=== PATIENT | male | born 1970 | race African-American/Black ===

== ENCOUNTER 2017-02-28 13:53 | Inpatient (IN) | payer MEDICAID ==
[2017-02-28] MEDS ORDERED: HYDROmorphone 1 mg/mL 1mL Syr IVP STA ×2 (14:27→15:43)
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
[2017-02-28 14:38] LABS: % EOSINOPHILS 3.1 % (0.0-5.0); % LYMPHOCYTES 25.4 % (20.0-50.0); % NEUTROPHILS 64.5 % (40.0-80.0); HEMATOCRIT 31.7 % (39.0-49.0); HEMOGLOBIN 10.5 gm/dL (13.2-17.3); MEAN CELL VOLUME 88.6 fl (80-99); MEAN CORPUSCULAR HEMOGLOBIN 29.3 pg (26.0-30.0); MEAN CORPUSCULAR HGB CONC 33.1 pg (28.0-36.0); MEAN PLATELET VOLUME 7.2 fl; NEUTROPHILE ABSOLUTE 3.4 Th/cmm (1.8-8.0); PLATELET COUNT 338 Th/cmm (150-400); RED BLOOD COUNT 3.58 Mil/cmm (4.30-5.70); RED CELL DISTRIBUTION WIDTH 12.6 % (11.5-20.0); WHITE BLOOD COUNT 5.4 Th/cmm (4.8-10.8)
[2017-02-28] MEDS ORDERED: HYDROmorphone 1 mg/mL 1mL Syr ONE ×2 (14:40→15:30)
[2017-02-28 14:58] LABS: ANION GAP 8.3 (7.0-16.0); BUN - UREA NITROGEN 14 mg/dL (7-25); CALCIUM SERUM 9.4 mg/dL (8.6-10.3); CARBON DIOXIDE 28.5 mEq/L (21.0-31.0); CHLORIDE 101 mEq/L (98-107); GLUCOSE 124 mg/dL (70-105); POTASSIUM SERUM 3.8 mEq/L (3.5-5.1); SODIUM SERUM 134 mEq/L (136-145)
[2017-02-28 15:00] LABS: INR 0.98 (0.5-1.4); PROTHROMBIN TIME (TEST) 10.2 SECONDS (9.5-11.5)
--- NOTE | 2017-02-28 15:55 | Diagnostic Imaging Report ---
Bilateral lower extremity DVT study HISTORY: Leg edema COMPARISON: None Technique: Longitudinal and transverse sonographic images of the bilateral lower extremity veins were obtained with doppler analysis. FINDINGS: There is normal compressibility, augmentation and phasicity of the bilateral common femoral, superficial femoral, popliteal, veins. The right posterior tibial and peroneal veins are not well-visualized due to overlying ulcers. The left posterior tibial and peroneal veins are patent. IMPRESSION: The right posterior tibial and peroneal veins were not visualized due to overlying ulcers. Otherwise no evidence of DVT within the bilateral lower extremity venous system. Consider short-term follow up exams if warranted.
[2017-02-28] MEDS ORDERED: HYDROmorphone 2 mg/mL 1mL Vial IVP PRN ×2 (20:04→21:25)
[2017-02-28] MEDS ORDERED: HYDROmorphone 1 mg/mL 1mL Syr IVP PRN (20:05)
[2017-02-28] MEDS ORDERED: Fleet Enema 135 mL RC PRN (20:18)
[2017-02-28] MEDS ORDERED: Magnesium Hydroxide (MOM) 30 mL UDC PO PRN (20:18)
[2017-02-28] MEDS ORDERED: HYDROmorphone 2 mg/mL 1mL Vial IVP ONE (20:45)
--- NOTE | 2017-02-28 20:52 | Admit Criteria Form ---
Admit Criteria Forms - Admit Criteria Diagnosis: ANEMIA, IRON DEFICIENCY OR UNSPECIFIED Clinical Indications for Inpatient Care (Place 'X' for any and all applicable criteria): Admission is indicated for ANY ONE of the following(1)(2)(3)(4)(5)(6)(7): [X] I. Inpatient admission required rather than observation care (Also use Anemia, Iron Deficiency or Unspecified: Observation Care guideline as appropriate) because of ANY ONE of the following: [] a) Hemodynamic instability that is severe or persistent [] b) Active bleeding that cannot be rapidly controlled [] c) CVS symptoms (i.e., dyspnea, chest pain, heart failure) that are severe or persistent [] d) Neurologic symptoms (i.e., cognitive impairment, recurrent syncope or near syncope) that are severe or persistent [] e) Cardiac arrhythmias of immediate concern [] f) Acute peripheral ischemia (e.g., pulseless, cool, mottled, or cyanotic extremity) [] g) High-risk low platelet count [] h) Acute renal failure [] i) Ongoing transfusion for blood loss (greater than 2 units) [] j) IV fluid to replace significant ongoing (eg, >24 hours) losses (> 3 L/m2 per day) [] k) Pulmonary artery catheter monitoring [] l) Supplemental oxygen or respiratory treatments for over 24 hours that are performable only in acute inpatient setting [] m) Immediate inpatient surgery [X] n) Other condition, treatment or monitoring requiring inpatient admission [] II Active massive hemorrhage [] III. Active hemolysis with rapidly progressive anemia [A](6) Extended stay beyond goal length of stay may be needed for (17)(18) []a) Diagnosed cause of anemia requiring longer hospitalization (eg, active GI bleeding, immune hemolysis requiring electrophoresis, complications of malignancy requiring acute care []b) Continued emergent anemia indicators (23) []c) Transfusion reactions []d) Associated leukopenia or thrombocytopenia needing inpatient care []e) Active comorbidities (eg, renal failure, heart failure) The original [employer] content created by [employer] has been revised. The portions of the content which have been revised are identified through the use of italic text or in bold. [employer] has neither reviewed nor approved the modified material. All other unmodified content is copyright [employer]. Please see references footnoted in the original [facility] edition 2016 Admit Criteria Met?: Yes
[2017-02-28] MEDS ORDERED: Piperacillin Sodium/Tazobact 3.375 gm Vial IV ONE (21:54)
[2017-03-01] MEDS: HYDROmorphone 2 mg/mL 1mL Vial IVP PRN ×6 (02:16→23:22)
[2017-03-01 02:45] VITALS: BP 136/71
[2017-03-01] MEDS ORDERED: Piperacillin Sodium/Tazobact 3.375 gm Vial IV ONE (05:46)
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
[2017-03-01] MEDS: Multivitamin w/ Minerals Tab PO SCH (08:51)
[2017-03-01] MEDS: POLYETHYLENE GLYCOL 3350 17 GM PACK PO SCH (08:52)
[2017-03-01 10:30] LABS: % LYMPHOCYTES 34.3 % (20.0-50.0); % MONOCYTES 10.5 % (2.0-10.0); % NEUTROPHILS 52.2 % (40.0-80.0); HEMATOCRIT 31.3 % (39.0-49.0); HEMOGLOBIN 10.3 gm/dL (13.2-17.3); MEAN CELL VOLUME 89.4 fl (80-99); MEAN CORPUSCULAR HEMOGLOBIN 29.4 pg (26.0-30.0); MEAN CORPUSCULAR HGB CONC 32.9 pg (28.0-36.0); PLATELET COUNT 335 Th/cmm (150-400); RED CELL DISTRIBUTION WIDTH 12.8 % (11.5-20.0)
[2017-03-01 10:47] LABS: WHITE BLOOD COUNT 3.8 Th/cmm (4.8-10.8)
[2017-03-01 10:50] LABS: ANION GAP 7.9 (7.0-16.0); BUN - UREA NITROGEN 13 mg/dL (7-25); BUN/CREATININE RATIO 11.8; CALCIUM SERUM 9.5 mg/dL (8.6-10.3); CARBON DIOXIDE 30.8 mEq/L (21.0-31.0); CHLORIDE 103 mEq/L (98-107); CREATININE - SERUM 1.1 mg/dL (0.7-1.3); GLUCOSE 102 mg/dL (70-105); POTASSIUM SERUM 3.7 mEq/L (3.5-5.1); SODIUM SERUM 138 mEq/L (136-145)
--- NOTE | 2017-03-01 20:34 | General Progress Note ---
Subjective - Review of Systems Service Date: 03/01/17 Objective - Results Result Diagrams: 03/01/17 10:17 03/01/17 10:17 Recent Labs: Laboratory Last Values WBC 3.8 Th/cmm (4.8-10.8) L D 03/01/17 10:17 RBC 3.50 Mil/cmm (4.30-5.70) L 03/01/17 10:17 Hgb 10.3 gm/dL (13.2-17.3) L 03/01/17 10:17 Hct 31.3 % (39.0-49.0) L 03/01/17 10:17 MCV 89.4 fl (80-99) 03/01/17 10:17 MCH 29.4 pg (26.0-30.0) 03/01/17 10: MCHC Differential 32.9 pg (28.0-36.0) 03/01/17 10:17 RDW 12.8 % (11.5-20.0) 03/01/17 10:17 Plt Count 335 Th/cmm (150-400) 03/01/17 10:17 MPV 7.0 fl 03/01/17 10:17 Neutrophils % 52.2 % (40.0-80.0) 03/01/17 10:17 Lymphocytes % 34.3 % (20.0-50.0) 03/01/17 10:17 Monocytes % 10.5 % (2.0-10.0) H 03/01/17 10:17 Eosinophils % 3.0 % (0.0-5.0) 03/01/17 10: Basophils % 0.0 % (0.0-2.0) 03/01/17 10:17 PT 10.2 SECONDS (9.5-11.5) 02/28/17 14:31 INR 0.98 (0.5-1.4) 02/28/17 14:31 PTT (Actin FS) 30.8 SECONDS (26.0-38.0) 02/28/17 14:31 Sodium 138 mEq/L (136-145) 03/01/17 10:17 Potassium 3.7 mEq/L (3.5-5.1) 03/01/17 10:17 Chloride 103 mEq/L (98-107) 03/01/17 10:17 Carbon Dioxide 30.8 mEq/L (21.0-31.0) 03/01/17 10:17 Anion Gap 7.9 (7.0-16.0) 03/01/17 10:17 BUN 13 mg/dL (7-25) 03/01/17 10:17 Creatinine 1.1 mg/dL (0.7-1.3) 03/01/17 10:17 Est GFR ( Amer) > 60.0 ml/min (>90) 03/01/17 10:17 Est GFR (Non-Af Amer) > 60.0 ml/min 03/01/17 10:17 BUN/Creatinine Ratio 11.8 03/01/17 10:17 Glucose 102 mg/dL (70-105) 03/01/17 10:17 Calcium 9.5 mg/dL (8.6-10.3) 03/01/17 10: TSH 13.85 uIU/ml (0.34-5.60) H 03/01/17 10:17 - Physical Exam Vitals and I&O: Vital Signs Temp 98.0 F 03/01/17 16:00 Pulse 59 03/01/17 16:00 Resp 18 03/01/17 16:00 BP 129/67 03/01/17 16:00 Pulse Ox 98 03/01/17 16:00 Intake & Output 03/01/17 03/01/17 03/02/17 06:59 18:59 06:59 Intake Total 580 240 Output Total 500 Balance 80 240 Intake: Intake, IV Amount 100 Piperacillin Sodium/ 100 Tazobact 3.375 gm In Sodium Chloride 0.9% 50 ml @ 100 mls/hr IV Q8HR [facility] Rx#:[id number] Oral 480 240 Output: Urine 500 Other: # Voids 1 # Bowel Movements 1 Active Medications: Current Medications Acetaminophen (Tylenol) 650 mg PO Q4HR PRN PRN Reason: mild pain Stop: 04/29/17 20:17 Ascorbic Acid (Vitamin C) 500 mg PO DAILY [facility] Stop: 04/30/17 08:59 Last Admin: 03/01/17 08:51 Dose: 500 mg Baclofen (Lioresal) 10 mg PO QID [facility] Stop: 04/29/17 20:59 Last Admin: 04/21/17 16:43 Dose: 10 mg Bethanechol Chloride (Urecholine) 10 mg PO QID [facility] Stop: 04/29/17 20:59 Last Admin: 03/01/17 17:34 Dose: 10 mg Bisacodyl (Dulcolax 10 Mg Supp) 10 mg RC DAILY PRN PRN Reason: if MOM ineffective Stop: 04/29/17 20:17 Docusate Sodium (Colace) 100 mg PO DAILY [facility] Stop: 04/30/17 08:59 Last Admin: 03/01/17 08:51 Dose: 100 mg Gabapentin (Neurontin) 300 mg PO QID [facility] Stop: 04/29/17 20:59 Last Admin: 03/01/17 16:43 Dose: 300 mg Heparin Sodium (Porcine) (Heparin) 5,000 units SUBQ Q12HR [facility] Stop: 04/30/17 20:59 Hydromorphone HCl (Dilaudid) 4 mg IVP Q4HR PRN PRN Reason: Severe Pain Stop: 04/29/17 21:22 Last Admin: 03/01/17 19:18 Dose: 4 mg Hydromorphone HCl (Dilaudid) 2 mg IVP Q4HR PRN PRN Reason: MODERATE PAIN Stop: 04/29/17 21:24 Piperacillin Sod/Tazobactam (Sod 3.375 gm/ Sodium Chloride) 50 mls @ 100 mls/ hr IV Q8HR [facility] Stop: 04/29/17 20:59 Last Admin: 03/01/17 12:32 Dose: 100 mls/hr Magnesium Hydroxide (Milk Of Magnesia) 30 ml PO HS PRN PRN Reason: Constipation Stop: 04/29/17 20:17 Polyethylene Glycol (Miralax) 17 gm PO DAILY [facility] Stop: 04/30/17 08:59 Last Admin: 03/01/17 08:52 Dose: 17 gm Pregabalin (Lyrica) 100 mg PO TID [facility] Stop: 04/29/17 20:59 Last Admin: 03/01/17 13:55 Dose: 100 mg Sodium Phosphate (Fleet Enema) 135 ml RC Q2D PRN PRN Reason: dulcolax ineffective Stop: 04/29/17 20:17 Tramadol HCl (Ultram) 50 mg PO QID [facility] Stop: 04/29/17 20:59 Last Admin: 03/01/17 16:43 Dose: 50 mg Zinc Sulfate (Zinc Sulfate) 220 mg PO DAILY [facility] Stop: 04/30/17 08:59 Last Admin: 03/01/17 08:51 Dose: 220 mg Assessment/Plan - Problem List Patient Problems: All Active Problems INFECTED WOUND (Acute) Infected wound (Acute ~02/28/17) T14.8, L08.9
[2017-03-02] MEDS: HYDROmorphone 2 mg/mL 1mL Vial IVP PRN ×5 (04:14→21:37)
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
[2017-03-02] MEDS: Multivitamin w/ Minerals Tab PO SCH (08:24)
[2017-03-02] MEDS: POLYETHYLENE GLYCOL 3350 17 GM PACK PO SCH (08:24)
--- NOTE | 2017-03-02 10:07 | General Progress Note ---
Subjective - Review of Systems Service Date: 03/02/17 Events since last encounter: refused bone scan yesterday for MRI Saturday Objective - Results Result Diagrams: 03/01/17 10:17 03/01/17 10: Recent Labs: Laboratory Last Values WBC 3.8 Th/cmm (4.8-10.8) L D 03/01/17 10:17 RBC 3.50 Mil/cmm (4.30-5.70) L 03/01/17 10:17 Hgb 10.3 gm/dL (13.2-17.3) L 03/01/17 10:17 Hct 31.3 % (39.0-49.0) L 03/01/17 10: MCV 89.4 fl (80-99) 03/01/17 10:17 MCH 29.4 pg (26.0-30.0) 03/01/17 10: MCHC Differential 32.9 pg (28.0-36.0) 03/01/17 10:17 RDW 12.8 % (11.5-20.0) 03/01/17 10:17 Plt Count 335 Th/cmm (150-400) 03/01/17 10:17 MPV 7.0 fl 03/01/17 10:17 Neutrophils % 52.2 % (40.0-80.0) 03/01/17 10:17 Lymphocytes % 34.3 % (20.0-50.0) 03/01/17 10:17 Monocytes % 10.5 % (2.0-10.0) H 03/01/17 10:17 Eosinophils % 3.0 % (0.0-5.0) 03/01/17 10:17 Basophils % 0.0 % (0.0-2.0) 03/01/17 10:17 PT 10.2 SECONDS (9.5-11.5) 02/28/17 14:31 INR 0.98 (0.5-1.4) 02/28/17 14:31 PTT (Actin FS) 30.8 SECONDS (26.0-38.0) 02/28/17 14:31 Sodium 138 mEq/L (136-145) 03/01/17 10:17 Potassium 3.7 mEq/L (3.5-5.1) 03/01/17 10:17 Chloride 103 mEq/L (98-107) 03/01/17 10:17 Carbon Dioxide 30.8 mEq/L (21.0-31.0) 03/01/17 10:17 Anion Gap 7.9 (7.0-16.0) 03/01/17 10:17 BUN 13 mg/dL (7-25) 03/01/17 10:17 Creatinine 1.1 mg/dL (0.7-1.3) 03/01/17 10:17 Est GFR ( Amer) > 60.0 ml/min (>90) 03/01/17 10:17 Est GFR (Non-Af Amer) > 60.0 ml/min 03/01/17 10:17 BUN/Creatinine Ratio 11.8 03/01/17 10:17 Glucose 102 mg/dL (70-105) 03/01/17 10:17 Calcium 9.5 mg/dL (8.6-10.3) 03/01/17 10: TSH 13.85 uIU/ml (0.34-5.60) H 03/01/17 10:17 - Physical Exam Vitals and I&O: Vital Signs Temp 98 F 03/02/17 08:00 Pulse 61 03/02/17 08:00 Resp 20 03/02/17 08:00 BP 107/60 03/02/17 08:00 Pulse Ox 94 03/02/17 08:00 Intake & Output 03/01/17 03/02/17 03/02/17 18:59 06:59 18:59 Intake Total 650 510 120 Output Total 4 Balance 650 506 120 Intake: Intake, IV Amount 50 50 Piperacillin Sodium/ 50 50 Tazobact 3.375 gm In Sodium Chloride 0.9% 50 ml @ 100 mls/hr IV Q8HR [facility] Rx#:[id number] Oral 600 460 120 Output: Stool 4 Other: # Bowel Movements 1 Stool Characteristics Soft Soft Formed Formed Active Medications: Current Medications Acetaminophen (Tylenol) 650 mg PO Q4HR PRN PRN Reason: mild pain Stop: 04/29/17 20:17 Ascorbic Acid (Vitamin C) 500 mg PO DAILY [facility] Stop: 04/30/17 08:59 Last Admin: 03/02/17 08:23 Dose: 500 mg Baclofen (Lioresal) 10 mg PO QID [facility] Stop: 04/29/17 20:59 Last Admin: 03/02/17 08:23 Dose: 10 mg Bethanechol Chloride (Urecholine) 10 mg PO QID [facility] Stop: 04/29/17 20:59 Last Admin: 03/02/17 08:23 Dose: 10 mg Bisacodyl (Dulcolax 10 Mg Supp) 10 mg RC DAILY PRN PRN Reason: if MOM ineffective Stop: 04/29/17 20:17 Docusate Sodium (Colace) 100 mg PO DAILY [facility] Stop: 04/30/17 08:59 Last Admin: 03/02/17 08:24 Dose: 100 mg Gabapentin (Neurontin) 300 mg PO QID [facility] Stop: 04/29/17 20:59 Last Admin: 03/02/17 08:24 Dose: 300 mg Heparin Sodium (Porcine) (Heparin) 5,000 units SUBQ Q12HR [facility] Stop: 04/30/17 20:59 Last Admin: 03/02/17 08:24 Dose: 5,000 units Hydromorphone HCl (Dilaudid) 4 mg IVP Q4HR PRN PRN Reason: Severe Pain Stop: 04/29/17 21:22 Last Admin: 03/02/17 09:13 Dose: 4 mg Hydromorphone HCl (Dilaudid) 2 mg IVP Q4HR PRN PRN Reason: MODERATE PAIN Stop: 04/29/17 21:24 Piperacillin Sod/Tazobactam (Sod 3.375 gm/ Sodium Chloride) 50 mls @ 100 mls/ hr IV Q8HR [facility] Stop: 04/29/17 20:59 Last Admin: 03/02/17 04:15 Dose: 100 mls/hr Magnesium Hydroxide (Milk Of Magnesia) 30 ml PO HS PRN PRN Reason: Constipation Stop: 04/29/17 20:17 Polyethylene Glycol (Miralax) 17 gm PO DAILY [facility] Stop: 04/30/17 08:59 Last Admin: 03/02/17 08:24 Dose: 17 gm Pregabalin (Lyrica) 100 mg PO TID [facility] Stop: 04/29/17 20:59 Last Admin: 03/02/17 08:25 Dose: 100 mg Sodium Phosphate (Fleet Enema) 135 ml RC Q2D PRN PRN Reason: dulcolax ineffective Stop: 04/29/17 20:17 Tramadol HCl (Ultram) 50 mg PO QID [facility] Stop: 04/29/17 20:59 Last Admin: 03/02/17 08:24 Dose: 50 mg Zinc Sulfate (Zinc Sulfate) 220 mg PO DAILY [facility] Stop: 04/30/17 08:59 Last Admin: 03/02/17 08:24 Dose: 220 mg Assessment/Plan - Problem List Patient Problems: All Active Problems INFECTED WOUND (Acute) Infected wound (Acute ~02/28/17) T14.8, L08.9
--- NOTE | 2017-03-02 14:43 | Consultation ---
Consult Note - Consult Note Service Date: 03/02/17 Consult Note: [id number]
--- NOTE | 2017-03-02 22:35 | Progress Notes ---
DATE: 03/02/2017 SUBJECTIVE: The patient was seen in his room, having breakfast. Per the patient, he is doing okay. He is eating okay. He is having a good sleep. He denies any pain at this time. No acute distress. Per the patient, he is requesting for a distribution specialist explained to the patient that the surgeon already saw him and is already on the case. OBJECTIVE: HEENT: Head is atraumatic and normocephalic. Eyes: Bilateral conjunctivae are clear. Bilateral pupils are equally round and reactive. NECK: Supple. No JVD. CARDIOVASCULAR: S1 and S2 without murmur. PULMONARY: Clear to auscultation. GASTROINTESTINAL: Soft and nontender. MUSCULOSKELETAL: No clubbing, but edema on the right leg. ASSESSMENT: 1. Cellulitis of the right leg. 2. History of spinal cord injury. 3. Hypertension. 4. Chronic pain syndrome. PLAN: We will keep the patient as inpatient. We will continue IV antibiotics. We will follow up with the surgeon if the patient is possible for surgery or just for conservative management. JOB# [id number]
[2017-03-03] MEDS: HYDROmorphone 2 mg/mL 1mL Vial IVP PRN ×5 (02:10→22:59)
[2017-03-03] MEDS: POLYETHYLENE GLYCOL 3350 17 GM PACK PO SCH (09:19)
[2017-03-03] MEDS: Multivitamin w/ Minerals Tab PO SCH (09:21)
[2017-03-03] MEDS ORDERED: HYDROmorphone 2 mg/mL 1mL Vial IVP ONE (11:03)
--- NOTE | 2017-03-03 11:04 | General Progress Note ---
Subjective - Review of Systems Events since last encounter: no distress Objective - Results Result Diagrams: 03/01/17 10:17 03/01/17 10:17 Recent Labs: Laboratory Last Values WBC 3.8 Th/cmm (4.8-10.8) L D 03/01/17 10:17 RBC 3.50 Mil/cmm (4.30-5.70) L 03/01/17 10:17 Hgb 10.3 gm/dL (13.2-17.3) L 03/01/17 10:17 Hct 31.3 % (39.0-49.0) L 03/01/17 10:17 MCV 89.4 fl (80-99) 03/01/17 10:17 MCH 29.4 pg (26.0-30.0) 03/01/17 10:17 MCHC Differential 32.9 pg (28.0-36.0) 03/01/17 10:17 RDW 12.8 % (11.5-20.0) 03/01/17 10:17 Plt Count 335 Th/cmm (150-400) 03/01/17 10:17 MPV 7.0 fl 03/01/17 10:17 Neutrophils % 52.2 % (40.0-80.0) 03/01/17 10:17 Lymphocytes % 34.3 % (20.0-50.0) 03/01/17 10:17 Monocytes % 10.5 % (2.0-10.0) H 03/01/17 10:17 Eosinophils % 3.0 % (0.0-5.0) 03/01/17 10:17 Basophils % 0.0 % (0.0-2.0) 03/01/17 10:17 ESR 124 mm/hr (0-20) H 03/03/17 07:58 PT 10.2 SECONDS (9.5-11.5) 02/28/17 14:31 INR 0.98 (0.5-1.4) 02/28/17 14:31 PTT (Actin FS) 30.8 SECONDS (26.0-38.0) 02/28/17 14:31 Sodium 138 mEq/L (136-145) 03/01/17 10:17 Potassium 3.7 mEq/L (3.5-5.1) 03/01/17 10:17 Chloride 103 mEq/L (98-107) 03/01/17 10:17 Carbon Dioxide 30.8 mEq/L (21.0-31.0) 03/01/17 10:17 Anion Gap 7.9 (7.0-16.0) 03/01/17 10:17 BUN 13 mg/dL (7-25) 03/01/17 10:17 Creatinine 1.1 mg/dL (0.7-1.3) 03/01/17 10:17 Est GFR ( Amer) > 60.0 ml/min (>90) 03/01/17 10:17 Est GFR (Non-Af Amer) > 60.0 ml/min 03/01/17 10:17 BUN/Creatinine Ratio 11.8 03/01/17 10:17 Glucose 102 mg/dL (70-105) 03/01/17 10:17 Calcium 9.5 mg/dL (8.6-10.3) 03/01/17 10:17 TSH 13.85 uIU/ml (0.34-5.60) H 03/01/17 10:17 - Physical Exam Vitals and I&O: Vital Signs Temp 97.6 F 03/03/17 07:00 Pulse 51 03/03/17 07:00 Resp 18 03/03/17 08:34 BP 122/74 03/03/17 07:00 Pulse Ox 96 03/03/17 07:00 Intake & Output 03/02/17 03/03/17 03/03/17 18:59 06:59 18:59 Intake Total 530 170 Balance 530 170 Intake: Intake, IV Amount 50 50 Piperacillin Sodium/ 50 50 Tazobact 3.375 gm In Sodium Chloride 0.9% 50 ml @ 100 mls/hr IV Q8HR [facility] Rx#:[id number] Oral 480 120 Other: # Voids 3 Stool Characteristics Soft Soft Formed Formed Active Medications: Current Medications Acetaminophen (Tylenol) 650 mg PO Q4HR PRN PRN Reason: mild pain Stop: 04/29/17 20:17 Ascorbic Acid (Vitamin C) 500 mg PO DAILY [facility] Stop: 04/30/17 08:59 Last Admin: 03/03/17 09:20 Dose: 500 mg Baclofen (Lioresal) 10 mg PO QID [facility] Stop: 04/29/17 20:59 Last Admin: 03/03/17 09:21 Dose: 10 mg Bethanechol Chloride (Urecholine) 10 mg PO QID [facility] Stop: 04/29/17 20:59 Last Admin: 03/03/17 09:22 Dose: 10 mg Bisacodyl (Dulcolax 10 Mg Supp) 10 mg RC DAILY PRN PRN Reason: if MOM ineffective Stop: 04/29/17 20:17 Docusate Sodium (Colace) 100 mg PO DAILY [facility] Stop: 04/30/17 08:59 Last Admin: 03/03/17 09:21 Dose: 100 mg Gabapentin (Neurontin) 300 mg PO QID [facility] Stop: 04/29/17 20:59 Last Admin: 03/03/17 09:21 Dose: 300 mg Heparin Sodium (Porcine) (Heparin) 5,000 units SUBQ Q12HR [facility] Stop: 04/30/17 20:59 Last Admin: 03/03/17 09:20 Dose: 5,000 units Hydromorphone HCl (Dilaudid) 4 mg IVP Q4HR PRN PRN Reason: Severe Pain Stop: 04/29/17 21:22 Last Admin: 03/03/17 06:36 Dose: 4 mg Hydromorphone HCl (Dilaudid) 2 mg IVP Q4HR PRN PRN Reason: MODERATE PAIN Stop: 04/29/17 21:24 Last Admin: 03/03/17 10:35 Dose: 2 mg Hydromorphone HCl (Dilaudid) 2 mg IVP X1 ONE Stop: 03/03/17 11:04 Piperacillin Sod/Tazobactam (Sod 3.375 gm/ Sodium Chloride) 50 mls @ 100 mls/ hr IV Q8HR [facility] Stop: 04/29/17 20:59 Last Admin: 03/03/17 05:13 Dose: 100 mls/hr Magnesium Hydroxide (Milk Of Magnesia) 30 ml PO HS PRN PRN Reason: Constipation Stop: 04/29/17 20:17 Polyethylene Glycol (Miralax) 17 gm PO DAILY [facility] Stop: 04/30/17 08:59 Last Admin: 03/03/17 09:19 Dose: 17 gm Pregabalin (Lyrica) 100 mg PO TID [facility] Stop: 04/29/17 20:59 Last Admin: 03/03/17 09:20 Dose: 100 mg Sodium Phosphate (Fleet Enema) 135 ml RC Q2D PRN PRN Reason: dulcolax ineffective Stop: 04/29/17 20:17 Tramadol HCl (Ultram) 50 mg PO QID [facility] Stop: 04/29/17 20:59 Last Admin: 03/03/17 09:20 Dose: 50 mg Zinc Sulfate (Zinc Sulfate) 220 mg PO DAILY [facility] Stop: 04/30/17 08:59 Last Admin: 03/03/17 09:21 Dose: 220 mg Assessment/Plan - Problem List Patient Problems: All Active Problems INFECTED WOUND (Acute) Infected wound (Acute ~02/28/17) T14.8, L08.9
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
[2017-03-04] MEDS: HYDROmorphone 2 mg/mL 1mL Vial IVP PRN ×5 (02:57→20:26)
--- NOTE | 2017-03-04 08:39 | Diagnostic Imaging Report ---
Right lower extremity Doppler arterial ultrasound exam HISTORY: Pain, ischemic vascular disease Sonographic sector images were obtained through the arterial system the right leg. Associated Doppler data was obtained. The exam demonstrates triphasic waveforms within the common femoral and proximal and mid portions of the superficial femoral artery. Biphasic waveforms are noted within the distal portion of the superficial femoral artery, popliteal artery, and dorsalis pedis arteries. The anterior and posterior tibial arteries could not be evaluated due to overlying cutaneous ulcers. Retention of normal velocities within the visualized vessels. No definite significant narrowing or stenosis is seen. Pressure measurements could not be obtained due to cutaneous ulcerations. IMPRESSION: 1. Limited exam related due to cutaneous ulcers over the lower leg. 2. No definite evidence of significant narrowing or stenosis within the visualized arteries of the right leg as noted above.
[2017-03-04] MEDS: Multivitamin w/ Minerals Tab PO SCH (08:45)
[2017-03-04] MEDS: POLYETHYLENE GLYCOL 3350 17 GM PACK PO SCH (08:46)
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
[2017-03-04] MEDS: cefTRIAXone 2 GM in Sodium Chloride 0.9% 100 ML IV SCH (11:13)
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
[2017-03-05] MEDS: HYDROmorphone 2 mg/mL 1mL Vial IVP PRN ×4 (00:52→15:56)
[2017-03-05] MEDS: Multivitamin w/ Minerals Tab PO SCH (08:55)
[2017-03-05] MEDS: POLYETHYLENE GLYCOL 3350 17 GM PACK PO SCH (08:55)
[2017-03-05] MEDS: cefTRIAXone 2 GM in Sodium Chloride 0.9% 100 ML IV SCH (09:00)
[2017-03-05] MEDS ORDERED: Venelex 60gm Tube TP SCH (09:00)
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
--- NOTE | 2017-03-07 08:32 | Diagnostic Imaging Report ---
MRI right lower extremity without intravenous contrast HISTORY: Pain, osteomyelitis Multiple MRI sequences were obtained in the sagittal, axial, coronal planes. The exam demonstrates severe deformity of the lower mid tibial shaft associated with changes of an old fracture. Retention of normal MRI signal intensity through the bony structures. No definite evidence of osteomyelitis. A focus of signal void is seen within the proximal tibia consistent with metallic density presumably related to prior surgery. Deformity consistent with an old fracture of the mid distal shaft of the fibula also noted. Mild heterogeneity in the soft tissues along the lateral aspect of the lower leg. No discrete abnormal masses or abnormal fluid collections. IMPRESSION: 1. Deformity involving the mid/distal shafts of the tibia and fibula consistent with old fractures. No definite evidence of osteomyelitis. 2. Focus within the proximal tibia consistent with the presence of underlying metallic density presumably related to prior surgery. Correlation with plain radiographs recommended.
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
== END 2017-03-05 18:25 | DRG 813 ==
LOC: ER 13:53 → MSI 18:20
PROVIDERS: ADMIT Internal Medicine; ATTEND Internal Medicine
DX: T86.822 Skin graft (allograft) (autograft) infection (principal); L03.115 Cellulitis of right lower limb; M86.671 Other chronic osteomyelitis, right ankle and foot; I10 Essential (primary) hypertension; B99.9 Unspecified infectious disease; D63.8 Anemia in other chronic diseases classified elsewhere; M54.9 Dorsalgia, unspecified; G89.4 Chronic pain syndrome; I83.90 Asymptomatic varicose veins of unspecified lower extremity
CPT/HCPCS: 36415-UA; 73718-TC-RT; 80048-TC; 84443-TC; 85025-TC; 85610-TC; 85652-TC; 85730-TC; 86141-TC; 87070-90; 87075-90; 87086-90; 87205-90; 93926-RT-TC; 93970-TC-50; 96374; 96376; J0696; J1170; J1644; J2543; Z7610

== ENCOUNTER 2017-07-11 17:31 | Inpatient (IN) | payer MEDICAID ==
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
[2017-07-11 18:07] LABS: % BASOPHILS 0.4 % (0.0-2.0); % MONOCYTES 7.7 % (2.0-10.0); % NEUTROPHILS 58.9 % (40.0-80.0); MEAN CELL VOLUME 92.8 fl (80-99); MEAN CORPUSCULAR HEMOGLOBIN 30.3 pg (26.0-30.0); MEAN CORPUSCULAR HGB CONC 32.6 pg (28.0-36.0); MEAN PLATELET VOLUME 7.4 fl; NEUTROPHILE ABSOLUTE 3.1 Th/cmm (1.8-8.0); PLATELET COUNT 307 Th/cmm (150-400); RED BLOOD COUNT 4.11 Mil/cmm (4.30-5.70); RED CELL DISTRIBUTION WIDTH 12.3 % (11.5-20.0)
[2017-07-11 18:10] LABS: HEMATOCRIT 38.2 % (39.0-49.0); HEMOGLOBIN 12.4 gm/dL (13.2-17.3); WHITE BLOOD COUNT 5.3 Th/cmm (4.8-10.8)
[2017-07-11 18:20] LABS: BUN - UREA NITROGEN 15 mg/dL (7-25); BUN/CREATININE RATIO 13.6; CALCIUM SERUM 9.7 mg/dL (8.6-10.3); CARBON DIOXIDE 28.7 mEq/L (21.0-31.0); CHLORIDE 102 mEq/L (98-107); CREATININE - SERUM 1.1 mg/dL (0.7-1.3); GLUCOSE 86 mg/dL (70-105); POTASSIUM SERUM 3.7 mEq/L (3.5-5.1); SODIUM SERUM 134 mEq/L (136-145)
[2017-07-11 18:22] LABS: INR 0.99 (0.5-1.4); PROTHROMBIN TIME (TEST) 10.3 SECONDS (9.5-11.5)
[2017-07-11] MEDS ORDERED: Sodium Chloride 0.9% 1,000 ML IV ONE (18:39)
[2017-07-11] MEDS ORDERED: HYDROmorphone 2 mg/mL 1mL Vial IVP STA (18:40)
[2017-07-11] MEDS ORDERED: HYDROmorphone 2 mg/mL 1mL Vial ONE (18:43)
[2017-07-11] MEDS ORDERED: HYDROmorphone 1 mg/mL 1mL Syr IVP PRN (21:40)
[2017-07-11] MEDS ORDERED: HYDROmorphone 2 mg/mL 1mL Vial IVP PRN (21:41)
[2017-07-11] MEDS ORDERED: Piperacillin Sodium/Tazobact 3.375 gm Vial IV ONE ×2 (22:52)
[2017-07-11] MEDS ORDERED: Magnesium Hydroxide (MOM) 30 mL UDC PO PRN (22:59)
[2017-07-11] MEDS ORDERED: Acetaminophen 500 MG TAB PO PRN (22:59)
[2017-07-11] MEDS ORDERED: Fleet Enema 135 mL RC PRN (22:59)
[2017-07-12] MEDS ORDERED: Morphine Sulfate 4 mg/mL 1mL Syr IVP PRN (00:35)
[2017-07-12] MEDS: HYDROmorphone 2 mg/mL 1mL Vial IVP PRN ×2 (01:24→07:40)
--- NOTE | 2017-07-12 07:57 | Diagnostic Imaging Report ---
Bilateral lower extremity DVT study HISTORY: Left thigh pain COMPARISON: None Technique: Longitudinal and transverse sonographic images of the bilateral lower extremity veins were obtained with doppler analysis. FINDINGS: There is normal compressibility, augmentation and phasicity of the bilateral common femoral, superficial femoral, popliteal, and posterior tibial veins. No thrombus is visualized. IMPRESSION: No evidence of thrombus within the bilateral lower extremity veins.
[2017-07-12] MEDS ORDERED: POLYETHYLENE GLYCOL 3350 17 GM PACK PO SCH (09:00)
[2017-07-12] MEDS ORDERED: Multivitamin w/ Minerals Tab PO SCH (09:00)
[2017-07-12] MEDS ORDERED: HYDROmorphone 1 mg/mL 1mL Syr IVP PRN (13:36)
[2017-07-12] MEDS ORDERED: HYDROmorphone 2 mg/mL 1mL Vial IVP PRN (13:38)
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
--- NOTE | 2017-07-13 08:33 | Diagnostic Imaging Report ---
CT cervical spine without IV contrast HISTORY: Pain COMPARISON: None Technique: Axial images were obtained from the skull base to the upper thoracic spine without IV contrast. Multiplanar reconstructions were made. Total DLP: [id number], [id number] FINDINGS: Images of the spine cervical spine obtained without contrast demonstrate no evidence of a fracture or subluxation. Moderate generalized degenerative changes are seen with multilevel marginal osteophytic spurring greatest at C6/C7 measuring 3 mm. There is mild spinal canal and moderate bilateral neural foraminal narrowing at this level. There is also mild bilateral neural foraminal narrowing at C7/T1. No prevertebral soft tissue swelling. The lung apices are clear. Edema of the subcutaneous tissues is noted. IMPRESSION: No evidence of an acute fracture or subluxation. Multilevel moderate degenerative changes greatest at C6/C7 Edema of the subcutaneous tissues.
--- NOTE | 2017-07-13 08:36 | Diagnostic Imaging Report ---
CT lumbar spine without IV contrast HISTORY: Back pain COMPARISON: None Technique: Axial images were obtained from the lower thoracic spine to the upper sacrum without IV contrast. Reconstructions were made. total DLP: [id number], [id number] Findings: Images of the lumbar spine obtained without contrast demonstrate no evidence of acute fracture or subluxation. Multilevel mild to moderate degenerative changes are seen greatest at L4/L5 with 3 to 4 mm focal disc bulge at this level. There is mild spinal canal mild bilateral foraminal narrowing at this level. Additional smaller disc bulges are seen at L3/L4 and L5/S1 with mild spinal canal and mild neural bilateral neural foraminal narrowing also noted these levels. Degenerative changes of SI joints are noted. Minimal atherosclerosis of the aorta is noted. IMPRESSION: No evidence of acute fracture or subluxation Degenerative changes as detailed above greatest at L4/L5.
--- NOTE | 2017-07-16 01:45 | Admit Criteria Form ---
Admit Criteria Forms - Admit Criteria Diagnosis: GENERAL ADMISSION CRITERIA (Place 'X' for any and all applicable criteria): Admission is indicated for ANY ONE of the following: [ ]I. Hemodynamic instability as indicated by ANY ONE of the following(1)(2) (3)(4)(5): [ ]a) Vital sign abnormality not readily corrected by appropriate treatment within 12 to 24 hours indicated by ANY ONE of the following: [ ]i) Hypotension [ ]ii) Symptomatic Tachycardia unresponsive to treatment (eg , analgesia, fluids, sedation as indicated) [ ]iii) Orthostatic vital sign changes unresponsive to treatment (eg, fluids) [ ]b) Vital sign abnormality that is severe indicated by ANY ONE of the following: [ ]i) Inadequate perfusion indicated by ANY ONE of the following: [ ]1) Lactic acidosis (greater than 2 mmol/L) [ ]2) New abnormal capillary refill (greater than 3 seconds) [ ]3) Other metabolic acidosis (arterial pH less than 7.35) not otherwise explained [ ]4) Reduced urine output [ ]5) Altered mental status [ ]6) Myocardial Ischemia [ ]v) Mean arterial pressure[A] less than 60 mm Hg [ ]vi) Mean arterial pressure[A] less than 70 mm Hg after 30 minutes of appropriate treatment (eg, fluid resuscitation) [ ]vii) IV inotropic or vasopressor medication required to maintain adequate blood pressure or perfusion [ ]viii) Sustained heart rate greater than 120 beats per minute in adult or child 6 years or older[B]] [ ]II. Hypertension requiring inpatient treatment as indicated by ANY ONE of the following(6)(7)(8): [ ]a) SBP greater than 220 mm Hg or DBP greater than 120 mm Hg despite treatment [ ]b) SBP greater than 140 mm Hg or DBP greater than 100 mm Hg with evidence of acute end organ damage as indicated by ANY ONE of the following: [ ]i) Encephalopathy [ ]ii) Acute renal failure as indicated by new onset of ANY ONE of the following(9)(10)(11)(12)(13): [ ]1) A 3-fold rise in serum creatinine from baseline [ ]2) Serum creatinine greater than 4 mg/dL ( 354 micromoles/L) with acute rise greater than 0.5 mg/dL (44.2 micromoles/L) [ ]3) Reduction of more than 75% in estimated glomerular filtration rate from baseline [ ]4) Estimated glomerular filtration rate less than 35 mL/min/1.73m2 (0.59 mL/sec/1.73m2) in child up to 18 years of age [ ]5) Cessation of urine output indicated by ALL of the following: [ ]A. Adequate volume status [ ]B. Inadequate urine output as indicated by ANY ONE of the following: [ ]a. Urine output less than 0.3 mL/kg/hr for 24 hours [ ]b. Anuria (urine output less than 0.1 mL/kg/hr) for 12 hours [ ]iii) Aortic dissection [ ]iv) Myocardial ischemia [ ]v) Left ventricular heart failure [ ]vi) Retinal hemorrhage [ ]vii) Other significant finding [ ]c) Hypertension in child requiring inpatient treatment as indicated by ALL of the following(14)(15)(16): [ ]i) Outpatient treatment not effective, not available, or not appropriate [ ]ii) SBP or DBP greater than 95th percentile for age [ ]iii) Evidence of acute end organ damage as indicated by ANY ONE of the following: [ ]1) Altered mental status [ ]2) Acute renal failure as indicated by new onset of ANY ONE of the following(9)(10)(11)(12)(13): [ ]A. A 3-fold rise in serum creatinine from baseline [ ]B. Serum creatinine greater than 4 mg/dL (354 micromoles/L) with acute rise greater than 0.5 mg/dL (44.2 micromoles/L) [ ]C. Reduction of more than 75% in estimated glomerular filtration rate from baseline [ ]D. Estimated glomerular filtration rate less than 35 mL/min/1.73m2 (0.59 mL/sec/1.73m2)in child up to 18 years of age [ ]E. Cessation of urine output indicated by ALL of the following: [ ]a. Adequate volume status [ ]b. Inadequate urine output as indicated by ANY ONE of the following: [ ]1) Urine output less than 0.3 mL/kg/hr for 24 hours [ ]2) Anuria (urine output less than 0.1 mL/kg/hr) for 12 hours [ ]3) Severe headache [ ]4) Visual disturbance [ ]5) Retinal hemorrhage [ ]6) Other significant finding [ ]III. Acute cardiac or peripheral ischemia as indicated by ANY ONE of the following: [ ]a) Acute coronary syndrome(17)(18) [ ]b) Acute peripheral ischemia (eg, pulseless, cool, mottled, or cyanotic extremity)(19) [ ]IV. Cardiac arrhythmias or findings of immediate concern indicated by ANY ONE of the following(20)(21): [ ]a) Heart rhythms that are inherently dangerous or unstable indicated by ANY ONE of the following(22)(23)(24): [ ]i) Resuscitated ventricular fibrillation or cardiac arrest [ ]ii) Ventricular escape rhythm [ ]iii) Sustained ventricular tachycardia (30 seconds or more of ventricular rhythm at greater than 100 beats per minute) [ ]iv) Nonsustained ventricular tachycardia and ANY ONE of the following: [ ]1) Suspected cardiac ischemia as cause or consequence of ventricular tachycardia [ ]2) In setting of acute myocarditis [ ]b) Unstable cardiac conduction defects indicated by ANY ONE of the following(24)(25)(26): [ ]i) Type II second-degree atrioventricular block [ ]ii) Third-degree atrioventricular block [ ]iii) New-onset left bundle branch block with suspected myocardial ischemia [ ]c) Any heart rhythm and ANY ONE of the following(22)(23)(27)(28)( 29): [ ] i) Continuous long-term ECG monitoring needed (eg, initiation of drug requiring monitoring for more than 24 hours) [ ] ii) Patient has automatic implanted cardioverter defibrillator that is repeatedly firing, malfunctioning, or in need of immediate adjustment of settings beyond the scope of ambulatory or observation care. [ ]d) Heart rhythms of concern due to ANY ONE of the following: [ ]i) Hypotension [ ]ii) Respiratory distress [ ]iii) Association with other significant symptoms (eg, bradycardia with syncope or ongoing dizziness, supraventricular tachycardia with chest pain) (27)(28) (30) [ ] V. Severe heart failure as indicated by ANY ONE of the following ( 31)(32): [ ]a) Respiratory distress [ ]b) Hypotension [ ]c) Anasarca (refractory to outpatient therapy) [ ]d) Cardiac arrhythmias of immediate concern [ ]e) Myocardial ischemia [ ]. Respiratory abnormalities, including ANY ONE of the following(33)(34) (35)(36): [ ]a) Respiratory rate greater than 30 breaths per minute unresponsive to treatment [A] [ ]b) New saturation of arterial oxygen less than 90% [ ]c) New partial pressure of carbon dioxide greater than 44 mm Hg ( 5.9 kPa) [ ]d) Supplemental oxygen or respiratory treatments needed that are new or not performable at other levels of care [ ]e) New-onset cyanosis [ ]f) Inability to protect airway [ ]g) Chronic lung disease with severe deterioration (not responsive to emergency and observation care treatment as appropriate) as indicated by ANY ONE of the following(34)(36 ): [ ]i) SaO2 5% below baseline in patient with chronic hypoxemia [ ]ii) New requirement for supplemental oxygen to keep SaO2 at baseline or acceptable level [ ]iii) Required supplemental oxygen performable only in acute inpatient setting [ ]iv) Severe airflow or ventilation abnormalities [ ]v) Previously mobile patient unable to walk between rooms [ ]vi Inability to eat or sleep due to dyspnea [ ]vii) Rapid rate of exacerbation onset [ ]viii) Altered mental status ]VII. Severe airflow or ventilation abnormalities (not responsive to emergency and observation care treatment as appropriate) as indicated by ANY ONE of the following(33)(34)(35)(37): [ ]a) PCO2 greater than 42 mm Hg (5.6 kPa) and pH less than 7.35 (new ) [ ]b) Documented PCO2 increased more than 5 mm Hg (0.7 kPa) from disease baseline [ ]c) Airflow measurements [B] less than 60% of previous best or predicted (eg, peak expiratory flow rate less than 300 L/minute) despite intensive emergent treatment [C] [ ]d) Required respiratory treatments that are performable only in acute inpatient setting [ ]VIII. Impending or actual respiratory arrest ( Also use Respiratory Failure GRG for severe respiratory disease and long-term mechanical ventilation patients) [ ]IX. Neurologic abnormalities, including ANY ONE of the following: [ ]a) New findings that suggest ANY ONE of the following: [ ]i) DESKTOP MANAGER infection(38) [ ]ii) Cerebral bleeding, ischemia, or vasospasm(39)(40) [ ]iii) Increased intracranial pressure, hydrocephalus, or cerebral edema(41)(42)(43) [ ]iv) Spinal cord injury(44) [ ]b) Uncontrolled seizures(45) [ ]c) New-onset coma (eg, Lobito coma scale score less than 9) or unexplained abnormal mental status (eg, Lobito coma scale score less than 14) [D](41)(46)(47) [ ]X. New-onset severe neurologic findings requiring inpatient care; examples include(42)(48)(49): [ ]a) Papilledema [ ]b) Cerebral edema [ ]c) Mass effect on CT scan [ ]XI. Suspected acute intra-abdominal process with peritoneal signs, abdominal mass, or similar findings (50)(51)(52) [ ]XII. Severe physiologic disorder remaining after emergency or observation level care (as appropriate) as indicated by ANY ONE of the following (53): [ ]a) Significant dehydration [ ]b) Diabetic ketoacidosis [ ]c) Hyperglycemic hyperosmolar state (eg, osmolality greater than 320 mOsm/kg (mmol/kg) [ ]d) Hypoglycemia [ ]e) Other (new) acid-base disorder with pH less than 7.35 or greater than 7.5(54) [ ]f) Thyroid storm (55) [ ]g) Myxedema coma (55) [ ]XIII. Abdominal abnormalities with ANY ONE of the following(56)(57): [ ]a) Absent bowel sounds with complete ileus [ ]b) Signs of intestinal obstruction or peritonitis [E] [ ]c) Nausea and vomiting that cannot be controlled with outpatient or observation care [ ]XIV. Acute renal failure as indicated by new onset of ANY ONE of the following(9)(10)(11)(12)(13): [ ]a) A 3-fold rise in serum creatinine from baseline [ ]b) Serum creatinine greater than 4 mg/dL (354 micromoles/L) with acute rise greater than 0.5 mg/dL (44.2 micromoles/L) [ ]c) Reduction of more than 75% in estimated glomerular filtration rate from baseline [ ]d) Estimated glomerular filtration rate less than 35 mL/min/ 1.73m2 (0.59 mL/sec/1.73m2) in child up to 18 years of age [ ]e) Cessation of urine output indicated by ALL of the following: [ ]i) Adequate volume status [ ]ii) Inadequate urine output as indicated by ANY ONE of the following: [ ]1) Urine output less than 0.3 mL/kg/hr for 24 hours [ ]2) Anuria (urine output less than 0.1 mL/kg/hr) for 12 hours [ ]XV. Significant uremic complications as indicated by ANY ONE of the following(58)(59)(60): [ ]a) Outpatient therapy is ineffective or not feasible for ANY ONE of the following: [ ]i) Severe heart failure [ ]ii) Severehypertension [ ]iii) Pleural effusion [ ]iv) Pericarditis or pericardial effusion [ ]b) Cardiac arrhythmias of immediate concern [ ]c) Intractable nausea or vomiting [ ]d) Recurrent seizures [ ]e) Encephalopathy [ ]f) Bleeding abnormalities (eg, platelet dysfunction) with active (eg, gastrointestinal) bleeding [ ]g) Dialysis indicated before long-term access or ambulatory arrangements can be made [ ]h) Significant metabolic or electrolyte abnormalities (eg, severe acidosis or hyperkalemia) [ ]XVI. High fever or other high-risk infection situation as indicated by ANY ONE of the following(61)(62)(63)(64): [ ]a) Outpatient and observation care antimicrobial treatment unavailable, not effective, or not appropriate [ ]b) Documented bacteremia [ ]c) Temperature greater than 40.5 degrees C (104.9 degrees F) ( oral) [ ]d) Temperature greater than 39.5 degrees C (103.1 degrees F) ( oral) or less than 36 degrees C (96.8 degrees F) (rectal) that does not respond to e treatment and observation care [ ] XVII. Temperature less than 95 degrees F (35 degrees C)(rectal)(65) [ ] XVIII. Severe nutritional abnormalities as indicated by ALL of the following (66)(67): [ ]a) Inability to tolerate or establish sufficient oral or other enteral nutrition in outpatient setting [ ]b) Parenteral nutrition regimen need that must be implemented on inpatient basis [ ] XIX. Severe electrolyte abnormalities indicated by ALL of the following(68) (69)(70): [ ]a) Electrolytes and associated findings are not as expected for patient baseline or acceptable treatment effects. [ ]b) Severe abnormalities indicated by ANY ONE of the following: [ ]i) Sodium less than 130 mEq/L (mmol/L) (new) [ ]ii)Sodium less than 135 mEq/L (mmol/L) with ANY ONE of the following: [ ]1) Uncorrectable (to near normal or chronic baseline) after trial of outpatient and emergency treatment [ ]2) Altered mental status [ ]3) Seizures [ ]4) Severe medical etiology requiring inpatient management (eg, heart failure, hypovolemia) [ ]iii) Sodium greater than 155 mEq/L (mmol/L) [ ]iv) Sodium greater than 150 mEq/L (mmol/L) with ANY ONE of the following: [ ]1) Uncorrectable (to near normal or chronic baseline) with outpatient and emergency treatment [ ]2) Altered mental status [ ]3) Seizures [ ]4) Severe medical etiology (eg, hypovolemia, diabetes insipidus) [ ]v) Potassium less than 2.5 mEq/L (mmol/L) despite outpatient and emergency treatment [ ]vi) Potassium less than 3 mEq/L (mmol/L) with ANY ONE of the following: [ ]1) Weakness [ ]2) Cardiac abnormality (eg, arrhythmia, conduction disturbance) [ ]3) Cardiac ischemia [ ]4) Ileus [ ]5) Ongoing medical cause requiring inpatient management (eg, acute renal wasting or SIADH) [ ]6) Other severe symptoms [ ]vii) Potassium greater than 6.5 mEq/L (mmol/L) [ ]viii) Potassium greater than 5 mEq/L (mmol/L) with ANY ONE of the following: [ ]1) Uncorrectable (to near normal or chronic baseline) with outpatient and emergency treatment [ ]2) Severe ECG findings [F] [ ]3) Acute worsening of renal failure (creatinine greater than 2.5 mg/dL (221 micromoles/L) or significant elevation for age and size) [ ]4) Severe weakness [ ]5) Severe medical etiology (eg, hemolysis, infection, drug overdose) [ ]ix) Calcium less than 7 mg/dL (1.75 mmol/L) despite outpatient and emergency treatment (72) [ ]x) Calcium less than 8 mg/dL (2 mmol/L) with significant symptoms or findings; examples include(72): [ ]1) Altered mental status [ ]2) Muscle spasms [ ]3) Seizures [ ]4) Breathing difficulty [ ]5) Cardiac abnormality (eg, arrhythmia or conduction disturbance) [ ]xi) Calcium greater than 14 mg/dL (3.5 mmol/L)(72) [ ]xii) Calcium greater than 12 mg/dL (3 mmol/L) with ANY ONE of the following(72): [ ]1) Uncorrectable (to near normal or chronic baseline) with outpatient and emergency treatment [ ]2) Significant dehydration or hypovolemia as indicated by ALL of the following(70)(73)(74): [ ]A. Not resolved with initial treatments [ ]B. Clinically significant dehydration as indicated by ANY ONE of the following: [ ]a. Vomiting refractory to outpatient treatment (ie, precluding oral rehydration) [ ]b. Inability to drink [ ]c. Hypernatremia or other electrolyte abnormality unable to be corrected with outpatient and emergency treatment [ ]d. Failure to remain hydrated with outpatient therapy [ ]e. Reduced urine output [ ]f. Hypotension [ ]g. Serious cause for dehydration requiring acute hospitalization (eg, bowel obstruction, increased intracranial pressure, infectious cause) [ ]h. Child with ANY ONE of the following(75): [ ]1) Severe abdominal tenderness [ ]2) Adequate care not available at home [ ]3) Severe dehydration ( greater than 9% loss of body weight) [ ]4) Significant symptoms or findings; examples include: [ ]A. Altered mental status [ ]B. Cardiac abnormality (eg, arrhythmia, conduction disturbance) [ ]C. Malignant etiology requiring inpatient treatment [ ]xiii) Phosphorus less than 1 mg/dL (0.32 mmol/L) [ ]xiv) Phosphorus less than 1.5 mg/dL (0.48 mmol/L) with ANY ONE of the following: [ ]1) Patient unresponsive to outpatient and emergency treatment [ ]2) Significant symptoms or findings; examples include: [ ]A. Weakness [ ]B. Altered mental status [ ]C. Breathing difficulty [ ]D. Seizures [ ]E. Rhabdomyolysis [ ]xv) Phosphorus greater than 10 mg/dL (3.2 mmol/L) [ ]xvi) Phosphorus greater than 4.5 mg/dL (1.45 mmol/L) (new) with ANY ONE of the following: [ ]1) Severe medical etiology (eg, crush injury, acute renal failure) [ ]2) Associated hypocalcemia with significant findings; examples include: [ ]A. Neurologic symptoms [ ]B. Altered mental status [ ]C. Muscle spasms [ ]D. Seizures [ ]E. Breathing difficulty [ ]F. Cardiac abnormality (eg, arrhythmia, conduction disturbance) [ ]xvii) Magnesium less than 1 mg/dL (0.41 mmol/L) [ ]xviii) Magnesium less than 1.5 mg/dL (0.62 mmol/L) with ANY ONE of the following: [ ]1) Patient unresponsive to outpatient and emergency treatment [ ]2) Associated hypocalcemia with significant findings; examples include: [ ]A. Altered mental status [ ]B. Muscle spasms [ ]C. Seizures [ ]D. Breathing difficulty [ ]E. Cardiac abnormality (eg, arrhythmia , conduction disturbance) [ ]3) Associated hypokalemia (potassium less than 3 mEq/L (mmol/L)) with risk of arrhythmia [ ]xix) Magnesium greater than 4 mEq/L (2 mmol/L) [ ]xx) Magnesium greater than 2.5 mEq/L (1.25 mmol/L) with significant symptoms or findings; examples include: [ ]1) Weakness [ ]2) Altered mental status [ ]3) Cardiac abnormality (eg, arrhythmia, conduction disturbance) [ ]4) Breathing difficulty [ ]5) Severe medical etiology (eg, renal failure, hypovolemia) [ ]xxi) Uric acid greater than 20 mg/dL (1190 micromoles/L)(76) [ ]xxii) Uric acid greater than 8 mg/dL (476 micromoles/L) with significant symptoms or findings of tumor lysis syndrome; examples include(76): [ ]1) Creatinine greater than 1.5 times upper limit of normal [ ]2) Cardiac abnormality (eg, arrhythmia, conduction disturbance) [ ]3) Seizure [ ]XX. Acute blood loss causing significant abnormality as indicated by ANY ONE of the following(77)(78): [ ]a) Hemoglobin less than 10 g/dL (100 g/L) (not baseline) [ ]b) Hematocrit less than 30% (0.30) (not baseline) [ ]c) Repeat hematocrit decreased more than 2% (0.02) [ ]d) Uncontrolled bleeding [ ]XXI. Severe anemia indicated by ANY ONE of the following(78)(79): [ ]a) Altered mental status [ ]b) Chest pain [ ]c) Exertional dyspnea [ ]d) Syncope [ ]e) Other findings suggesting inadequate perfusion [ ]f) Treatment with transfusion or volume replacement is ineffective at resolving ANY ONE of the following [G]: [ ]i) Tachycardia for age [ ]ii) Orthostatic vital sign changes as indicated by ANY ONE of the following(80): [ ]1) Fall in SBP of 20 mm Hg or more 1 to 3 minutes after patient sits or stands from recumbent position [ ]2) Fall in DBP of 10 mm Hg or more 1 to 3 minutes after patient sits or stands from recumbent position [ ]XXII. High-risk low platelet count as indicated by ANY ONE of the following( 81)(82): [ ]a) Severe or life-threatening bleeding (eg, intracranial, major gastrointestinal, or extensive mucosal bleeding), with any reduced platelet count [ ]b) Platelet count less than 20,000/mm3 (20 x109/L) with any active bleeding [ ]c) Platelet count less than 10,000/mm3 (10 x109/L) with minor purpura or petechiae [ ]d) Platelet count less than 5000/mm3 (5 x109/L) [ ]e) Low platelet count with hemolytic anemia [ ]XXIII. Disseminated intravascular coagulation(77)(83) [ ]XXIV. Severe adverse drug or systemic toxin reaction requiring inpatient treatment; examples include(84)(85): [ ]a) Serotonin syndrome(86) [ ]b) Neuroleptic malignant syndrome(86) [ ]c) Cholinergic syndrome with severe symptoms (eg, bronchorrhea, weakness, mental status changes, seizures) [ ]d) Sympathetic syndrome with severe symptoms (eg, seizures, mental status changes, cardiac dysrhythmias) [ ]e) Anticholinergic syndrome [ ]XXV. Severe pain requiring acute inpatient management as indicated by ALL of the following (87)(88)(89): [ ]a) Continuous or frequent (eg, every 2 to 4 hours) parenteral analgesics required [H] [ ]b) Rapid improvement expected from treatment or acute intervention (eg, surgery, anesthesia procedure) [ ]XXVI.Severe behavioral health issues judged unmanageable at a lower level of care (eg, residential) in a patient who is ANY ONE of the following(91) [ ]a) Acutely suicidal [ ]b) A danger to self (eg, self-mutilating or suicidal behavior) [ ]c) A danger to others (eg, assaultive or homicidal behavior) [ ]d) Incapacitated because of grave disability (eg, inability to provide for self at lower level of care) (92) [X ]XXVII. Inpatient monitoring needed; examples include(1)(3)(87)(93)(94)(95)( 96): [ X]a) Vital signs, neurologic signs, or vascular checks more frequently than every 4 hours [ ]b) Cardiac or respiratory monitoring beyond the scope (eg, over 24 hours) of observation care [ ]c) Pulmonary artery catheter monitoring [ ]d) Suspected compartment syndrome(97) (98) [ ]e) Cerebral bleeding, hydrocephalus, or vasospasm monitoring [ ]f) Increased intracranial pressure or cerebral edema monitoring [ ]g) monitoring [ ]XXVIII. Treatment requiring inpatient care; examples include: [ ]a) IV fluid to replace significant ongoing losses (greater than 3 L/m2 per day)(53) [ ]b) High concentration oxygen (greater than 40%)(33)(99)(100) [ ]c) Frequent respiratory therapy (more frequently than every 4 hours) to maintain airflow rates greater than 60% of baseline(33)(99)(100) [ ]d) Epidural analgesia(87) [ ]e) IV anticoagulation, vasoactive, or antiarrhythmic medication(19 )(23) [ ]f) Acute thrombolytics (generally require 24 hours of observation )(101)(102) [ ]XXIX. Emergency procedures needed; examples include: [ ]a) Emergency inpatient surgery [ ]b) Temporary pacemaker placement(103) [ ]c) Chest tube placement with active evacuation (eg, suction, drainage)(104) [ ]d) Emergent cardioversion(105) [ ]e) Emergent cardiac or vascular procedures (eg, cardiac catheterization, angioplasty) (17)(18) [ ]f) Emergent dialysis access placement and institution(10)(106) [ ]g) Emergent pericardiocentesis(107) [ ]h) Emergent plasmapheresis or leukapheresis(83) [ ]i) Emergent tracheostomy The original [employer] content created by [employer] has been revised. The portions of the content which have been revised are identified through the use of italic text or in bold, and [facility] has neither reviewed nor approved the modified material. All other unmodified content is copyright [employer]. Please see references footnoted in the original [employer] edition 2016 Admit Criteria Met?: Yes
== END 2017-07-12 18:56 | disposition home or self-care (01) | DRG 383 ==
LOC: ER 17:31 → MSI 19:17
PROVIDERS: ADMIT Internal Medicine; ATTEND Internal Medicine
DX: L02.415 Cutaneous abscess of right lower limb (principal); G82.50 Quadriplegia, unspecified; M86.68 Other chronic osteomyelitis, other site; L03.116 Cellulitis of left lower limb; G89.29 Other chronic pain; M54.5 Low back pain; Z82.49 Family history of ischemic heart disease and other diseases of the circulatory system; Z87.891 Personal history of nicotine dependence; Z79.899 Other long term (current) drug therapy
CPT/HCPCS: 36415-UA; 72125-TC; 72131-TC; 80048-TC; 85025-TC; 85610-TC; 85730-TC; 87070-90; 87075-90; 87205-90; 93970-TC-50; J1170; J2543; J3370; J7030; Z7610